=== PATIENT | male | born 1955 | race Caucasian/White ===

== ENCOUNTER 2022-09-15 08:38 | Outpatient (OUT) | payer MEDICARE, OTHER, SELFPAY ==
--- NOTE | 2022-09-15 09:00 | NM_ITS ---
[address] [address] Patient Name: DAMIAN COLEY MRN: [id number] date: 1955 Sex: M Assigned Patient Location: [place] Current Patient Location: [place] Accession/Order Number: [id number] Exam Date: 09/15/2022 09:00 Report Date: 09/17/2022 07:23 At the request of: BRANDIE GARCIA Procedure: NM parathyroid EXAMINATION: NM parathyroid HISTORY: Hypercalcemia COMPARISON: No relevant comparison available. FINDINGS: The patient was given 25.5 mCi technetium 99m sestamibi. 15 minute and 3 hour 24-hour postinjection images were obtained PARATHYROID UPTAKE: None. OTHER: Symmetric uptake in the parotid and submandibular glands. Asymmetric increased activity/enlargement of the right thyroid gland with no focal abnormality. NM/NM parathyroid IMPRESSION: No abnormal uptake identified within the parathyroid glands Electronically authenticated by: DANYELLE CASTREJON Date: 09/17/2022 07:23
== END 2022-09-15 08:39 | disposition home or self-care (01) ==
LOC: NM 08:43
PROVIDERS: PCP Family Medicine; Visit Provider Otolaryngology
DX: E83.52 Hypercalcemia (principal)
CPT/HCPCS: 78070; A9500